=== PATIENT | male | born 1985 | race Caucasian/White ===

== ENCOUNTER 2019-09-07 15:43 | Emergency (ER) | payer SELFPAY ==
[~2019-09-07] VITALS: Ht 175.3 cm; Wt 104.3 kg
--- NOTE | 2019-09-07 15:48 | NUR ---
ED Nurse Note: Patient is not in waiting room at this time, unable to triage.
[2019-09-07 16:24] VITALS: BP 121/86
--- NOTE | 2019-09-07 16:25 | NUR ---
ED Nurse Note:pt. came with c/o headache and abdominal pain, mini-cog was done
--- NOTE | 2019-09-07 18:17 | Diagnostic Imaging Report ---
Indications: Headache and neck stiffness Technique: Spiral acquisitions obtained through the brain. Angled axial and coronal 5 x 5 mm slices were reconstructed. Total dose length product 1457 mGycm. CTDI vol(s) 62 mGy. Dose reduction achieved using automated exposure control Comparison: None. Findings: No acute intracranial hemorrhage or edema. No mass effect nor midline shift. Normal flaherty-white differentiation. The calvarium is intact. Visualized orbits are unremarkable. The visualized sinuses are clear. Impression: Negative This agrees with the preliminary interpretation provided overnight by [facility]. The CT scanner at [facility] is accredited by the [employer] and the scans are performed using protocols designed to limit radiation exposure to as low as reasonably achievable to attain images of sufficient resolution adequate for diagnostic evaluation.
--- NOTE | 2019-09-07 18:17 | Emergency Room Report ---
History of Present Illness General Chief Complaint: Headache Source: Patient Present Illness HPI 36-year-old male with no significant past medical history here complaining of headache and dizziness after fall on his head today. Denies loss of consciousness, nausea vomiting. Is requesting food. Patient appears to be homeless, disheveled, and in no distress. Denies chest pain, shortness of breath, palpitation, abdominal pain, nausea vomiting, fever and chills, and other associated symptoms. Has not taken medication for symptom relief. Denies photophobia, neck stiffness, fever and chills, and recent URI symptoms Allergies: Coded Allergies: No Known Allergies (Unverified , 09/07/19) Patient History Past Medical History: see triage record Past Surgical History: unable to obtain Pertinent Family History: none Immunizations: UTD Reviewed Nursing Documentation: PMH: Agreed; PSxH: Agreed Nursing Documentation-PMH Past Medical History: No History, Except For History Of Psychiatric Problem: Yes - anxiety Hx Neurological Problems: Yes - back surgery Review of Systems All Other Systems: negative except mentioned in HPI Physical Exam Vital Signs Date Time Temp Pulse Resp B/P (MAP) Pulse Ox O2 Delivery O2 Flow Rate FiO2 09/07/19 15:53 98.1 88 18 121/86 (98) 95 Room Air Sp02 EP Interpretation: reviewed, normal General Appearance: no apparent distress, alert, GCS 15, non-toxic Head: normocephalic, atraumatic Eyes: bilateral eye normal inspection, bilateral eye PERRL ENT: hearing grossly normal, normal pharynx, no angioedema, normal voice, TMs + canals normal Neck: full range of motion, supple, thyroid normal, no meningismus, no bony tend, no carotid bruits, supple/symm/no masses Respiratory: chest non-tender, lungs clear, normal breath sounds, no rhonchi, no respiratory distress, no retraction, no wheezing, speaking full sentences Cardiovascular #1: regular rate, rhythm, no edema, no murmur, normal capillary refill Cardiovascular #2: 2+ carotid (R), 2+ carotid (L) Gastrointestinal: normal bowel sounds, non tender, soft, non-distended, no guarding, no rebound Rectal: deferred Genitourinary: no CVA tenderness Musculoskeletal: back normal, gait/station normal, normal range of motion, non- tender, no calf tenderness Neurologic: alert, oriented x3, responsive, motor strength/tone normal, sensory intact, speech normal Psychiatric: judgement/insight normal, memory normal, mood/affect normal, no suicidal/homicidal ideation Skin: no rash Lymphatic: normal inspection, no adenopathy Medical Decision Making ZENAIDA Attestation All my diagnosis and treatment plans were reviewed ad discussed with my supervising physician Dr. Gaona Homeless Attestation The treating physician has assessed and agrees that patient is medically stable for outpatient disposition Diagnostic Impression: Primary Impression: Head contusion ER Course 36-year-old male with no significant past medical history here complaining of headache and dizziness after fall on his head today. Denies loss of consciousness, nausea vomiting. Is requesting food. Patient appears to be homeless, disheveled, and in no distress. Denies chest pain, shortness of breath, palpitation, abdominal pain, nausea vomiting, fever and chills, and other associated symptoms. Has not taken medication for symptom relief. Denies photophobia, neck stiffness, fever and chills, and recent URI symptoms Ddx considered but are not limited to: cerebral hematoma, concussion, skull fracture, head contusion Vital signs: are WNL, pt. is afebrile H&PE are most consistent with: Head contusion ORDERS: head CT no contrast, Tylenol ED INTERVENTIONS: None required at this time. DISCHARGE: At this time pt. is stable for d/c to home. Will provide printed patient care instructions, and any necessary prescriptions. Care plan and follow up instructions have been discussed with the patient prior to discharge. Patient to follow-up with her primary care provider, if worsening symptoms return to the emergency room CT/MRI/US Diagnostic Results CT/MRI/US Diagnostic Results : Imaging Test Ordered: Head CT no contrast Impression CT HEAD Without Contrast: No acute intracranial hemorrhage or calvarial fracture. Last Vital Signs Date Time Temp Pulse Resp B/P (MAP) Pulse Ox O2 Delivery O2 Flow Rate FiO2 09/07/19 16:24 98.1 18 121/86 95 Room Air 09/07/19 15:53 88 Disposition: HOME, SELF-CARE Condition: Stable Scripts Acetaminophen* (TYLENOL EXTRA STRENGTH*) 500 Mg Tablet 500 MG ORAL Q8H PRN for Prn Headache/Temp > 101, #30 TAB 0 Refills Prov: Evan Wilkins 09/07/19 Referrals: NOT CHOSEN IPA/MD,REFERRING (PCP) Patient Instructions: Facial or Scalp Contusion, [id number] Evan Wilkins Sep 07, 2019 18:17
[2019-09-07] MEDS ORDERED: TYLENOL EXTRA500 MG ORAL (18:18)
--- NOTE | 2019-09-07 19:15 | NUR ---
ER DISCHARGE NOTE: Patient is cleared to be discharged per ERMD, pt is aox4, on room air, with stable vital signs. pt was given dc and prescription instructions, pt was able to verbalize understanding, pt is able to ambulate with steady gait. pt took all belongings.
[2019-09-07 19:20] VITALS: BP 121/86
== END 2019-09-07 19:22 | disposition home or self-care (01) ==
LOC: EDBD → EMR 16:30
DX: S00.93XA Contusion of unspecified part of head, initial encounter (principal); F41.9 Anxiety disorder, unspecified; W18.30XA Fall on same level, unspecified, initial encounter; Y92.9 Unspecified place or not applicable
CPT/HCPCS: 70450; 99284

== ENCOUNTER 2019-09-08 10:11 | Emergency (ER) | payer SELFPAY ==
[~2019-09-08] VITALS: Ht 172.7 cm; Wt 90.7 kg
[~2019-09-08 10:11] MED LIST: TYLENOL EXTRA500 MG ORAL
--- NOTE | 2019-09-08 10:16 | NUR ---
ED Nurse Note:pt. not in waiting room
--- NOTE | 2019-09-08 10:38 | NUR ---
ED Nurse Note:was called again not in the room
--- NOTE | 2019-09-08 10:48 | NUR ---
ED Nurse Note:not in wating room
--- NOTE | 2019-09-08 11:14 | NUR ---
ED Nurse Note: pt presents to ED c/o a CHAVEZ. pt reports hitting his head on something but also that he has been feeling dizzy since he hit his head. pt rates the pain a 9/10. per pt, pain is located on top of his head and radiates to his neck. pt also c/o back pain. he was last seen here yesterday for abd pain
[2019-09-08 11:15] VITALS: BP 119/77
--- NOTE | 2019-09-08 11:45 | NUR ---
ER DISCHARGE NOTE: Patient is cleared to be discharged per ERMD, pt is mentating at baseline, with stable vital signs. pt was given dc instructions and bus token with directions to [facility] access center and a sandwich. pt was able to verbalize understanding of instructions, pt id band and iv site removed without complications. pt is able to ambulate with steady gait. pt took all belongings.
[2019-09-08 12:05] VITALS: BP 119/77
--- NOTE | 2019-09-08 13:13 | Emergency Room Report ---
History of Present Illness General Chief Complaint: Headache Source: Patient Present Illness HPI Patient presents with complaints of left-sided headache reports that he hit his head falling to the side Does not recall exactly how he fell Denies any neck pain denies any chest pain denies any focal weakness Pain is 3 out of 10 worse with touch denies any bleeding or lacerations And reports that this happened last night Allergies: Coded Allergies: No Known Allergies (Unverified , 09/07/19) Patient History Past Medical History: see triage record Reviewed Nursing Documentation: PMH: Agreed; PSxH: Agreed Nursing Documentation-PMH Past Medical History: No Stated History Hx Neurological Problems: Yes - back surgery Review of Systems All Other Systems: negative except mentioned in HPI Physical Exam Vital Signs Date Time Temp Pulse Resp B/P (MAP) Pulse Ox O2 Delivery O2 Flow Rate FiO2 09/08/19 11:08 98.1 82 18 119/77 (91) 99 Room Air Sp02 EP Interpretation: reviewed, normal General Appearance: well appearing, no apparent distress Head: normocephalic, atraumatic Eyes: bilateral eye PERRL, bilateral eye EOMI ENT: hearing grossly normal, normal pharynx, TMs + canals normal, uvula midline Neck: full range of motion, supple, no meningismus, no bony tend Respiratory: lungs clear, normal breath sounds, no rhonchi, no respiratory distress, no retraction, no accessory muscle use Cardiovascular #1: normal peripheral pulses, regular rate, rhythm, no edema, no gallop, no JVD, no murmur Gastrointestinal: normal bowel sounds, non tender, soft, no mass, no organomegaly, non-distended, no guarding, no hernia, no pulsatile mass, no rebound Genitourinary: no CVA tenderness Musculoskeletal: normal inspection Neurologic: oriented x3, responsive, 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, motor strength/ tone normal, sensory intact Psychiatric: mood/affect normal Skin: other - Somewhat disheveled appearance on the skin exam Lymphatic: normal inspection, no adenopathy Medical Decision Making Diagnostic Impression: Primary Impression: contusion ER Course Multiple differentials and consideration including but not limited to neurological neurosurgical,, orthopedic differentials on review of medical records the patient does appear to have been here Yesterday and had CT imaging of the brain which was negative I cannot appreciate any obvious hematomas or swelling I did not feel repeat imaging was required Patient is stable for close outpatient follow-up Last Vital Signs Date Time Temp Pulse Resp B/P (MAP) Pulse Ox O2 Delivery O2 Flow Rate FiO2 09/08/19 12:05 98.1 18 119/77 99 Room Air 09/08/19 11:08 82 Status: improved Disposition: HOME, SELF-CARE Condition: Improved Referrals: NON PHYSICIAN (PCP) [facility] Patient Instructions: Contusion, [id number] Additional Instructions: Patient is provided with the discharge instructions notified to follow up with primary doctor in the next 2-3 days otherwise return to the er with any worsening symptoms. Please note that this report is being documented using DRAGON technology. This can lead to erroneous entry secondary to incorrect interpretation by the dictating instrument. Alexandria Pack DO Sep 08, 2019 13:13
== END 2019-09-08 14:13 | disposition home or self-care (01) ==
LOC: EMR 11:30
DX: T14.8XXA Other injury of unspecified body region, initial encounter (principal); R51 Headache; W19.XXXA Unspecified fall, initial encounter; Y92.9 Unspecified place or not applicable
CPT/HCPCS: 99282